=== PATIENT | female | born 1945 | race African-American/Black ===

== ENCOUNTER 2016-09-20 11:44 | Day surgery (SDC) | payer OTHER ==
--- NOTE | ~2016-09-20 | OP ---
Record Of Operation [facility] [address] [place]. [address] NAME: MAYE MAYFIELD : 41 STATUS : REG [facility] [place] PAT#: [id number] AGE: 70 ADM/REG DATE : 09/20/16 MR#: [id number] REPORT SERV DATE: 09/21/16 DICTATED BY: DREW ABRAHAM DATE: 09/20/16 REPORT STATUS : Draft TRANSCRIBED BY: MODL DATE: 09/20/16 DATE OF PROCEDURE: 09/20/2016 PREOPERATIVE DIAGNOSIS: End-stage renal disease with recently dislodged right internal jugular vein PermCath. POSTOPERATIVE DIAGNOSIS: End-stage renal disease with recently dislodged right internal jugular vein PermCath. PROCEDURES: 1. Ultrasound-guided percutaneous access, right internal jugular vein. 2. Central venogram. 3. Placement of right internal jugular vein PermCath. SURGEON: Drew Abraham M.D. ANESTHESIA: Local with MAC. ESTIMATED BLOOD LOSS: Minimal. CONTRAST: 10 mL. COMPLICATIONS: None. INDICATION: Ms Mayfield is a pleasant 70-year-old female with end-stage renal disease on hemodialysis. She apparently was unable to successfully dialyze through her PermCath on Tuesday and was sent home. She was took off from dialysis today that her catheter still did not function properly. When she arrived to the hospital her catheter was completely dislodged and no longer in place. She is brought for placement of a new PermCath. DETAILS OF PROCEDURE: After informed consent was obtained the patient was brought to the operating room and placed in supine position. After administration of IV sedation, she is prepped and draped in usual sterile fashion. A time-out was performed. I commenced the procedure with ultrasound examination on the right side of the neck. She has a compressible vein on the right side of the neck which looks to be the internal jugular vein, although it is fairly small. I anesthetized the skin. I accessed with an 18-gauge entry needle. I attempted to advance the J tipped guidewire, but it met resistance, it would not pass under fluoroscopy. As a result, I switched to a Bentson wire. I then placed a 5-Upper Sorbian sheath. I performed contrast injection which shows that this is either the external jugular vein or perhaps a quite small internal jugular vein. However, it does terminate into the right brachiocephalic vein and ultimately feeds into the superior vena cava which is widely patent with no stenosis. As a result, I advanced the wire down into the right atrium. I anesthetized the skin of the right chest wall for tunneling of the PermCath. I selected a 23 cm straight Bard HemoSplit catheter. I made a stab incision on the right chest wall. I have also enlarged the puncture site in the right side of the neck. I advanced the catheter up to the puncture site on the right side of the neck. This is easily done with the Record Of Operation [place] [id number] [facility] [place]. [address] NAME: MAYE MAYFIELD : 41 STATUS : REG [facility] [place] PAT#: [id number] AGE: 70 ADM/REG DATE : 09/20/16 MR#: [id number] REPORT SERV DATE: 09/21/16 DICTATED BY: DREW ABRAHAM. DATE: 09/20/16 REPORT STATUS : Draft TRANSCRIBED BY: MODL DATE: 09/20/16 tunneler. I then advanced a peel-away sheath over the wire with the tip in the right atrium confirmed under fluoroscopy. I then advanced the catheter through the peel-away sheath while peeling it apart. Tip of the catheter came to rest in the right atrium. Both lumens aspirated dark venous blood and flushed easily with heparinized saline. Catheter was secured to the skin with 2-0 nylon. Skin on the right side of the neck was closed with 4-0 Monocryl. Dermabond was applied. The patient tolerated the procedure well with no complications. I was present and participated in the entire case as dictated. FELIPE/KRISHAN Drew Abraham M.D. / [id number] CC: Drew Abraham M.D.
[~2016-09-20 11:44] MED LIST: ASAEC PO; INSNOV7030 SC; L80 PO; LOP100 PO; PRAVACHOL40 MG PO
[2016-09-20 13:04] LABS: HEMOGLOBIN 12.1 g/dL (12.0-16.0)
[2016-09-20 13:05] LABS: HEMATOCRIT 36.9 % (36.0-48.0)
[2016-09-20 13:10] LABS: INTERNATIONAL NORMAL RATI 1.5 UNITS (-)
[2016-09-20 13:13] LABS: PROTIME (NOT ORD) 17.6 SEC (12.0-14.5)
[2016-09-20 13:15] LABS: BUN (BLOOD UREA NITROGEN) 99 MG/DL (6-23); CALCIUM, SERUM 8.3 MG/DL (8.5-10.4); CHLORIDE, SERUM 96 MMOL/L (96-112); CO2 (CARBON DIOXIDE) 23 MMOL/L (24-34); GFR AFRICAN AMERICAN 3 ML/MIN (>=60); GFR NON AFRICAN AMERICAN 2 ML/MIN (>=60); GLUCOSE, SERUM 96 MG/DL (60-99); POTASSIUM, SERUM 5.1 MMOL/L (3.5-5.3); SODIUM, SERUM 135 MMOL/L (135-148)
== END 2016-09-20 23:59 | disposition home or self-care (01) ==
LOC: SDC 11:44
PROVIDERS: Surgery
PROC: 02H633Z Insertion of Infusion Device into Right Atrium, Percutaneous Approach (ICD-10-PCS; 2016-09-20)
PROC: B214YZZ Fluoroscopy of Right Heart using Other Contrast (ICD-10-PCS; 2016-09-20)
PROC: 05PY03Z Removal of Infusion Device from Upper Vein, Open Approach (ICD-10-PCS; principal; 2016-09-20 14:15)
DX: T82.42XA Displacement of vascular dialysis catheter, initial encounter (principal); E11.22 Type 2 diabetes mellitus with diabetic chronic kidney disease; N18.6 End stage renal disease; I50.9 Heart failure, unspecified; E03.9 Hypothyroidism, unspecified; J44.9 Chronic obstructive pulmonary disease, unspecified; Z79.82 Long term (current) use of aspirin; Z79.4 Long term (current) use of insulin; Z79.899 Other long term (current) drug therapy
CPT/HCPCS: 36558; 71010; 77001; 80048; 82962; 85014; 85018; 85610; 93005; C1750; C1769; C1894; G0257; J0690; Q9967